=== PATIENT | female | born 1990 | race Native Hawaiian/Other Pacific Islander ===

== ENCOUNTER → 2020-07-21 | Outpatient (CLI) | payer OTHER ==
[~2020-07-21] MED LIST: LIDOCAINE 1% INJ 20 ML 20 ML VIAL INJ ONE
--- NOTE | 2020-07-21 10:10 | Diagnostic Imaging Report ---
INDICATION: Right parotid mass. Sonographic interrogation right parotid region was performed. There are 2 intraparenchymal lymph nodes within the right parotid gland. One node measures approximately 13 mm x 8 mm. 2nd node measures 11 mm x 7 mm. These demonstrate echogenic fatty hilum. No other parotid masses are seen. IMPRESSION: Interval parotid lymph nodes, corresponding to the palpable abnormality. Fine-needle aspiration was not performed at this time. Sonographic followup in 4-6 months is recommended to confirm stability. Dictated by: Dictated on workstation # [id number]
== END ==
LOC: RAD 08:30
PROVIDERS: ATTEND Otolaryngology Otolaryngology/Facial Plastic Surgery
DX: K11.8 Other diseases of salivary glands (principal)
CPT/HCPCS: 76536

== ENCOUNTER 2020-08-03 05:42 | Outpatient (CLI) | payer OTHER ==
[~2020-08-03] VITALS: Ht 157.5 cm; Wt 54.5 kg
[2020-08-03] MEDS ORDERED: AMPH20CA5 PO (11:52)
[2020-08-03] MEDS ORDERED: TRAZ-227 PO (11:52)
== END 2020-08-03 11:56 | disposition home or self-care (01) ==
LOC: PREOP 05:42
PROVIDERS: ATTEND Otolaryngology Otolaryngology/Facial Plastic Surgery
DX: Z01.818 Encounter for other preprocedural examination (principal)

== ENCOUNTER 2020-08-11 06:16 | Day surgery (SDC) | payer OTHER ==
[~2020-08-11] VITALS: Ht 157.5 cm; Wt 54.5 kg
[2020-08-11] VITALS (12 sets, daily range): BP systolic 100–128; BP diastolic 55–87
[~2020-08-11 06:16] MED LIST changes: +AMPH20CA5 PO; -LIDOCAINE 1% INJ 20 ML 20 ML VIAL INJ ONE; +TRAZ-227 PO
[2020-08-11] MEDS ORDERED: COCAINE HCL 4% 2 ML SYR ONE (06:36)
[2020-08-11] MEDS ORDERED: PHENYLEPHRINE 0.5% NASAL SPR (NEO-SYNEPHRINE) REG ONE (06:37)
[2020-08-11] MEDS ORDERED: LIDOCAINE/EPI 1%-1:100,000 (XYLOCAINE) 20ML ONE (06:37)
[2020-08-11] MEDS: LACTATED RINGERS 1,000 ML IV PRN ×2 (06:39→08:09)
[2020-08-11] MEDS ORDERED: LIDOCAINE PF 2% 5 ML (XYLOCAINE) VIAL ONE (06:43)
[2020-08-11] MEDS ORDERED: SEVOFLURANE (ULTANE) 15 ML INHAL SOLN ONE ×3 (06:43→08:40)
[2020-08-11] MEDS ORDERED: ROCURONIUM 10 MG/ML 5 ML SYRINGE IV ONE (06:43)
[2020-08-11] MEDS ORDERED: NEOSTIGMINE 3 MG/3 ML VIAL ONE (06:43)
[2020-08-11] MEDS ORDERED: fentaNYL INJ 100 MCG/2 ML AMP ONE (06:43)
[2020-08-11] MEDS ORDERED: ONDANSETRON 4 MG/2 ML (SDV) Z0FRAN ONE (06:43)
[2020-08-11] MEDS ORDERED: GLYCOPYRROLATE 0.2 MG/ML (ROBINUL) 2 ML VIAL ONE (06:43)
[2020-08-11] MEDS ORDERED: MIDAZOLAM 2 MG/2 ML (VERSED) VIAL ONE (06:43)
[2020-08-11] MEDS ORDERED: proPOfol 200 MG/20 ML (DIPRIVAN) VIAL IV ONE (06:43)
--- NOTE | 2020-08-11 07:01 | Progress Note-Pre Operative ---
Pre-Operative Progress Note H&P Reviewed The H&P was reviewed, patient examined and no changes noted. Date Seen by Provider: August 11, 2020 Time Seen by Provider: 06:30 Date H&P Reviewed: August 11, 2020 Time H&P Reviewed: 06:30 Pre-Operative Diagnosis: Left CErvical Adenopathy, Bilat ERENDIRA, Deviated Nasal Septu mwith HYper Turbs ARSENIO ZELAYA MD August 11, 2020 07:01
[2020-08-11] MEDS ORDERED: MUPIROCIN 2% OINT 22 GM (BACTROBAN) TUBE ONE (07:52)
--- NOTE | 2020-08-11 08:31 | Progress Note-Post Operative ---
Post-Operative Progess Note Surgeon (s)/Communication Manager (s) Surgeon ARSENIO ZELAYA MD Communication Manager n/a Pre-Operative Diagnosis Left CErvical Adenopathy, Bilat ERENDIRA, Deviated Nasal Septu mwith HYper Turbs Post-Operative Diagnosis same Post-Op Procedure Note Date of Procedure: August 11, 2020 Name of Procedure Performed: Nasal Septoplasty, Bilat Red of Inf Turbs, BMT, Excision of Left Cervical Lymph Node Description & Findings Description and Findings: n/a Anesthesia Type get Estimated Blood Loss minimal Packing none. Specimen(s) collected/removed left cervical lymph node to path fresh nasal septum ARSENIO ZELAYA MD August 11, 2020 08:31
[2020-08-11] MEDS ORDERED: HYDROcodone/APAP 5 MG/325 MG (LORTAB) TAB PO PRN (08:45)
[2020-08-11] MEDS ORDERED: ACETAMINOPHEN 325 MG TABLET PO PRN (08:45)
[2020-08-11] MEDS ORDERED: PROMETHAZINE INJ 25 MG/ML (PHENERGAN) AMP IVP PRN (08:45)
[2020-08-11] MEDS ORDERED: morphine INJ 10 MG/ML 1ML (SYR OR VIAL) IVP ONE (08:45)
[2020-08-11] MEDS ORDERED: HYDROmorphone 2 MG/ML VIAL (DILAUDID) IV ONE (08:45)
[2020-08-11] MEDS ORDERED: D5 1/2 NS W/KCL 20 MEQ/L 1,000 ML IV SCH (08:45)
[2020-08-11] MEDS ORDERED: ONDANSETRON 4 MG/2 ML (SDV) Z0FRAN IVP PRN (08:45)
[2020-08-11] MEDS ORDERED: OFLO5DRO33 EACH EAR (10:12)
[2020-08-11] MEDS ORDERED: ACHD5005 PO (10:12)
[2020-08-11] MEDS ORDERED: AMOX-355 PO (10:12)
--- NOTE | 2020-08-11 10:28 | Anesthesia-General Post-Op ---
General Patient Condition Mental Status/LOC: Same as Preop Cardiovascular: Satisfactory Nausea/Vomiting: Absent Respiratory: Satisfactory Pain: Controlled Complications: Absent Post Op Complications Complications None Follow Up Care/Instructions Patient Instructions None needed. Anesthesia/Patient Condition Patient Condition Patient is doing well, no complaints, stable vital signs, no apparent adverse anesthesia problems. KAT ROTHMAN DO August 11, 2020 10:28
== END 2020-08-11 10:45 | disposition home or self-care (01) ==
LOC: SDC 06:16
PROVIDERS: ATTEND Otolaryngology Otolaryngology/Facial Plastic Surgery
DX: J34.3 Hypertrophy of nasal turbinates (principal); J34.2 Deviated nasal septum; H65.23 Chronic serous otitis media, bilateral; H69.93 Unspecified Eustachian tube disorder, bilateral; J34.89 Other specified disorders of nose and nasal sinuses; R09.81 Nasal congestion; R59.0 Localized enlarged lymph nodes; F90.9 Attention-deficit hyperactivity disorder, unspecified type; Z87.891 Personal history of nicotine dependence; Z79.899 Other long term (current) drug therapy; Z88.8 Allergy status to other drugs, medicaments and biological substances; Z98.51 Tubal ligation status; Z90.89 Acquired absence of other organs
CPT/HCPCS: 84703; 87081; 88184; 88185; 88300; 88305